=== PATIENT | male | born 1950 | race Hispanic/Latino ===

== ENCOUNTER 2018-12-04 08:33 | Inpatient (IN) | payer BC, MEDICARE ==
[~2018-12-04] VITALS: Ht 167.6 cm; Wt 81.2 kg
[2018-12-04 09:05] LABS: BASOPHILS % (AUTO) 0.1 % (0.0-5.0); EOSINOPHILS % (AUTO) 0.3 % (0.0-8.0); HEMATOCRIT 54.1 % (42-54); LYMPHOCYTES % (AUTO) 4.6 % (21.0-51.0); MEAN CORPUSCULAR HEMOGLOBIN 26.9 pg (27.0-33.0); MEAN CORPUSCULAR VOLUME 81.4 fL (79-99); MONOCYTES % (AUTO) 4.4 % (3.0-13.0); NEUTROPHILS % (AUTO) 90.6 % (40.0-77.0); PLATELET COUNT (AUTO) 172 K/uL (130-400); RED BLOOD CELL COUNT(AUTO) 6.64 MIL/uL (4.50-6.20); WHITE BLOOD COUNT (AUTO) 14.5 K/uL (4.8-10.8)
[2018-12-04 09:21] LABS: APPEARANCE,URINE Clear (CLEAR); BILIRUBIN,URINE Negative (NEGATIVE); COLOR,URINE Yellow (YELLOW); GLUCOSE, URINE (UA) Negative (NEGATIVE); KETONES,URINE Negative (NEGATIVE); LEUKOCYTE ESTERASE ,URINE Negative (NEGATIVE); NITRATE,URINE Negative (NEGATIVE); OCCULT BLOOD,URINE Negative (NEGATIVE); PROTEIN,URINE Trace mg/dL (NEGATIVE)
[2018-12-04 09:27] LABS: INR 0.99 (0.85-1.15); PARTIAL THROMBOPLASTIN TIME 25.2 SEC (26.3-35.5); PROTHROMBIN TIME 10.4 SEC (9.6-11.6)
[2018-12-04 09:32] LABS: CARBON DIOXIDE 26 mmol/L (21-32); CHLORIDE 103 mmol/L (101-111); CREATININE 1.1 mg/dL (0.5-1.5); GLOMERULAR FILTR. RATE CALC 71 mL/min (>60); GLUCOSE,RANDOM 217 mg/dL (70-105); POTASSIUM 4.1 mmol/L (3.5-5.1); SODIUM SERUM 142 mmol/L (136-145); UREA NITROGEN, BLOOD 25 mg/dL (7-18)
[2018-12-04 09:36] LABS: BACTERIA,URINE None Seen /HPF (None Seen); MUCUS,URINE Moderate LPF (None Seen); RBC,URINE 0-1 /HPF (0-1); SQUAMOUS EPITHELIAL CELL,UR 0-2 /HPF (0-2); WBC,URINE 0-1 /HPF (0-1)
[2018-12-04 09:43] LABS: ALANINE AMINOTRANSFERASE 36 U/L (12-78); ALBUMIN 4.2 g/dL (3.5-5.0); ASPARTATE AMINOTRANSFERASE 18 U/L (10-37); BILIRUBIN,TOTAL 0.6 mg/dL (0.2-1.0); CREATINE KINASE, TOTAL 135 U/L (21-232); MYOGLOBIN 50 ng/mL (10-92); TOTAL PROTEIN, SERUM 8.3 g/dL (6.0-8.3); TROPONIN I < 0.04 ng/mL (0.00-0.06)
[2018-12-04 09:57] LABS: BAND NEUTROPHILS % (MANUAL) 16 % (0-2); LYMPHOCYTES % (MANUAL) 3 % (22-44); MAN.DIFF COMMENT-IMPRESSION MANUAL DIFFERENTIAL; MONOCYTES % (MANUAL) 6 % (2-9); PLATELET MORPHOLOGY COMMENT ADEQUATE; SEGMENTED NEUTROPHILS % 75 % (40-70)
[2018-12-04] MEDS ORDERED: ONDANSETRON HCL 4 MG/2 ML VIAL ONE (10:03)
[2018-12-04] MEDS ORDERED: ZOSYN 3.375GM+NS 50ML 50 ML IV ONE (10:03)
[2018-12-04] MEDS ORDERED: SODIUM CHLORIDE 0.9% 1000ML 1,000 ML IV ONE ×3 (10:04→16:08)
[2018-12-04] MEDS ORDERED: ACETAMINOPHEN EXTRA STRENGTH 500 MG TABLET ONE (10:04)
[2018-12-04] MEDS ORDERED: HYDRALAZINE HCL 20 MG/ML VIAL IV PRN (15:45)
[2018-12-04] MEDS ORDERED: ACETAMINOPHEN 325 MG TAB PO PRN ×2 (15:45)
[2018-12-04] MEDS ORDERED: MORPHINE SULFATE 4 MG/1ML SYG IV PRN (15:45)
[2018-12-04] MEDS: SODIUM CHLORIDE 0.9% 1000ML 1,000 ML IV SCH (15:45)
[2018-12-04] MEDS ORDERED: ONDANSETRON HCL 4 MG/2 ML VIAL IV PRN (15:45)
[2018-12-04] MEDS ORDERED: MORPHINE SULFATE 2 MG/ML 1ML SYG IV PRN (15:45)
[2018-12-04] MEDS ORDERED: METOCLOPRAMIDE 10 MG/2 ML VIAL ONE (16:09)
[2018-12-04] MEDS ORDERED: ACETAMINOPHEN 325 MG TAB ONE (16:40)
[2018-12-04 16:47] LABS: MAGNESIUM 1.8 mg/dL (1.80-2.40); PHOSPHORUS 3.2 mg/dL (2.5-4.9)
[2018-12-04 16:49] LABS: HEMOGLOBIN A1C 7.4 % (4.0-6.0)
[2018-12-04] MEDS: METOCLOPRAMIDE 10 MG/2 ML VIAL IVP SCH (17:00)
--- NOTE | 2018-12-04 18:11 | NUR ---
REPORT RECEIVED FROM SILVIO WATERMAN (ED). PATIENT ADMITTED FOR SBO VS STOOL IMPACTION UNDER DR. SLAUGHTER SERVICES. DR. MOELLER CONSULTED AND IS AWARE OF THE CASE. PATIENT STATES HAS HAD SEVERAL BOWEL MOVEMENTS SINCE ARRIVAL TO ER AND FEELS BETTER. PATIENT STABLE AT THIS TIME.
[2018-12-04 18:20] VITALS: BP 131/70
[2018-12-04 19:40] VITALS: BP 125/66
[2018-12-04] MEDS ORDERED: ATOR10 PO (20:43)
[2018-12-04] MEDS: ZOSYN 3.375GM+NS 50ML 50 ML IV SCH (22:38)
[2018-12-04] MEDS: LORATADINE 10 MG TABLET PO SCH (22:39)
[2018-12-04] MEDS: FAMOTIDINE/PF 20 MG/2 ML VIAL IV SCH (22:39)
[2018-12-05] VITALS: BP 129/71
[2018-12-05] MEDS: SODIUM CHLORIDE 0.9% 1000ML 1,000 ML IV SCH ×3 (00:04→16:28)
[2018-12-05 04:00] VITALS: BP 140/80
[2018-12-05] MEDS: ZOSYN 3.375GM+NS 50ML 50 ML IV SCH ×3 (05:08→21:28)
[2018-12-05] MEDS: METOCLOPRAMIDE 10 MG/2 ML VIAL IVP SCH ×3 (06:52→16:54)
[2018-12-05 07:50] VITALS: BP 139/67
[2018-12-05] MEDS: FAMOTIDINE/PF 20 MG/2 ML VIAL IV SCH ×2 (09:30→21:28)
[2018-12-05] MEDS: LORATADINE 10 MG TABLET PO SCH (09:31)
[2018-12-05] MEDS: ENOXAPARIN SODIUM 30 MG/0.3 ML SQ SCH (09:32)
[2018-12-05 11:00] VITALS: BP 132/71
--- NOTE | 2018-12-05 11:00 | NUR ---
INITIAL MET W PATIENT ALONE, AAOXKathryn LIVES [facility] WHO WILL PROVIDE TRANSPORTT; PT STATES NURSING TRIED TO PLACE AN NGT X5 ATTEMPTS BUT WERE UNSUCCESSFUL. STATES HAS HAD TROUBLE W HIS STOMACH BEFORE BUT NEVER HAD TO BE HOSPITALIZED. PT IS AMB, INDP OF ADLS, NO CHENG/VALERIANO/LETICIA. DCP IS HOME Addendum: 12/05/18 at 1535 by LISA DE LOS SANTOS RN CM Amended: Links added.
[2018-12-05 15:48] VITALS: BP 146/80
[2018-12-05 20:10] VITALS: BP 134/74
[2018-12-05] MEDS ORDERED: ESOM40CA54 PO (22:38)
[2018-12-05] MEDS ORDERED: LORA10TA7 PO (22:38)
[2018-12-06 00:10] VITALS: BP 139/74
[2018-12-06] MEDS: SODIUM CHLORIDE 0.9% 1000ML 1,000 ML IV SCH ×2 (02:20→08:58)
[2018-12-06 04:00] VITALS: BP 130/71
[2018-12-06 04:58] LABS: HEMATOCRIT 39.5 % (42-54); MEAN CORPUSCULAR HEMOGLOBIN 26.6 pg (27.0-33.0); MEAN CORPUSCULAR VOLUME 80.5 fL (79-99); NUCLEATED RED BLOOD CELLS 0.1 % (0.0-0.19); PLATELET COUNT (AUTO) 138 K/uL (130-400); WHITE BLOOD COUNT (AUTO) 5.9 K/uL (4.8-10.8)
[2018-12-06] MEDS: ZOSYN 3.375GM+NS 50ML 50 ML IV SCH (05:13)
[2018-12-06 05:17] LABS: CREATININE 0.8 mg/dL (0.5-1.5); MAGNESIUM 1.8 mg/dL (1.80-2.40); PHOSPHORUS 2.6 mg/dL (2.5-4.9); POTASSIUM 3.5 mmol/L (3.5-5.1)
--- NOTE | 2018-12-06 05:29 | NUR ---
PATIENT UPDATE Clear liquid diet well tolerated, to be advanced to full liquid diet today. Continues with the NS at 125 cc/hr. Ambulating freely around the room, at the bedside.
[2018-12-06 07:56] VITALS: BP 148/83
[2018-12-06] MEDS: METOCLOPRAMIDE 10 MG/2 ML VIAL IVP SCH (08:58)
[2018-12-06] MEDS: FAMOTIDINE/PF 20 MG/2 ML VIAL IV SCH (08:58)
[2018-12-06] MEDS: LORATADINE 10 MG TABLET PO SCH (08:59)
[2018-12-06] MEDS ORDERED: BISACODYL 5 MG TABLET.DR PO SCH (09:00)
[2018-12-06] MEDS ORDERED: DOCUSATE SODIUM 100 MG CAP PO SCH (09:00)
[2018-12-06] MEDS: ENOXAPARIN SODIUM 30 MG/0.3 ML SQ SCH (09:01)
[2018-12-06 11:54] VITALS: BP 148/83
[2018-12-06] MEDS ORDERED: METR500T PO (11:59)
[2018-12-06] MEDS ORDERED: LEVO500T2 PO (11:59)
[2018-12-06] MEDS ORDERED: POTASSIUM CHLORIDE 20 MEQ ERTAB PO SCH (14:15)
[2018-12-06] MEDS ORDERED: MAGNESIUM 2GM PREMIX 50ML 50 ML IV PRN (14:15)
--- NOTE | 2018-12-06 14:40 | NUR ---
Follow up with dietitian regarding consult and she said she already talked to pt and gave her the diet recommendations to pt for diverticulitis
--- NOTE | 2018-12-06 15:05 | NUR ---
RD NOTIFICATION Dx: SBO vs. Stool Impaction. Hx: GERD, Hyperlipidemia, Constipation. Diet: Regular. PO intake 100% and has improved appetite as per pt. LBM: 12/04. Pt tolerating diet well. No complaints of nausea, vomiting or diarrhea at this time. Suspected Diverticulitis vs. SBO as per MD note. Pt stated he has felt bloated and constipated in the past triggered by certain foods. Pt admits to eating late at night right before bed. RD provided Low fiber and High fiber diet and nutrition education. RD encouraged pt to consume small, more frequent meals throughout the day vs. having a large meal before bedtime. RD emphasized drinking plenty fluids throughout the day and increasing physical activity after mealtimes. Depending on pt symptoms modify diet to low fiber and slowly increase to high fiber as tolerated. Pt stated he feels bloated with certain foods. RD encouraged pt to keep a food diary log and note foods that trigger adverse symptoms- and avoid these foods. Education materials provided. RD recommends GI SOFT/BLAND diet. d/c Regular diet. RD provided Low Fiber and High Fiber diet and nutrition education depending on symptoms. RD will follow up as needed. Ruby Temple MS, LIZZIE Addendum: 12/06/18 at [address] RD Amended: Links added.
--- NOTE | 2018-12-06 15:07 | NUR ---
DIET EDUCATION Pt stated he has felt bloated and constipated in the past triggered by certain foods. Pt admits to eating late at night right before bed. RD provided Low fiber and High fiber diet and nutrition education. RD encouraged pt to consume small, more frequent meals throughout the day vs. having a large meal before bedtime. RD emphasized drinking plenty fluids throughout the day and increasing physical activity after mealtimes. Depending on pt symptoms modify diet to low fiber and slowly increase to high fiber as tolerated. Pt stated he feels bloated with certain foods. RD encouraged pt to keep a food diary log and note foods that trigger adverse symptoms- and avoid these foods. Education materials provided. Addendum: 12/06/18 at [address] RD Amended: Links added.
[2018-12-06 16:00] VITALS: BP 159/72
== END 2018-12-06 16:45 | disposition home or self-care (01) | DRG 872 ==
LOC: EDH 08:33 → EDHIP 15:45 → 3AH 18:16
PROVIDERS: ADMIT Internal Medicine; ATTEND Internal Medicine
DX: A41.9 Sepsis, unspecified organism (principal); K57.92 Diverticulitis of intestine, part unspecified, without perforation or abscess without bleeding; K56.600 Partial intestinal obstruction, unspecified as to cause; K21.9 Gastro-esophageal reflux disease without esophagitis; E78.5 Hyperlipidemia, unspecified; Z87.891 Personal history of nicotine dependence; Z90.49 Acquired absence of other specified parts of digestive tract
CPT/HCPCS: 36415; 71045; 74018; 74176; 80048; 80053; 81001; 82150; 82550; 83036; 83605; 83690; 83735; 83874; 84100; 84145; 84484; 85025; 85027; 85610; 85730; 87040; 87088; 93005; G0378; J1650; J2405; J2543; J2765; J3475; J3490; J7030

== ENCOUNTER 2020-03-28 06:12 | Emergency (ER) | payer BC, MEDICARE, OTHER ==
[~2020-03-28 06:12] MED LIST: ATOR10 PO; ESOM40CA54 PO; LEVO500T2 PO; LORA10TA7 PO; METR500T PO
[2020-03-28 06:57] LABS: BASOPHILS % (AUTO) 0.3 % (0.0-5.0); HEMATOCRIT 46.8 % (42-54); LYMPHOCYTES % (AUTO) 35.9 % (21.0-51.0); MEAN CORPUSCULAR HEMOGLOBIN 25.6 pg (27.0-33.0); MEAN CORPUSCULAR HGB CONC 31.4 g/dL (32.0-36.0); MEAN CORPUSCULAR VOLUME 81.5 fL (79-99); MONOCYTES % (AUTO) 8.4 % (3.0-13.0); NEUTROPHILS % (AUTO) 54.1 % (40.0-77.0); PLATELET COUNT (AUTO) 179 K/uL (130-400); RED BLOOD CELL COUNT(AUTO) 5.74 MIL/uL (4.50-6.20); RED CELL DISTRIBUTION WIDTH 13.7 % (11.0-15.5)
[2020-03-28 06:58] LABS: ALBUMIN 3.9 g/dL (3.5-5.0); BILIRUBIN,TOTAL 0.7 mg/dL (0.2-1.0); CREATININE 0.8 mg/dL (0.5-1.5); TOTAL PROTEIN, SERUM 8.2 g/dL (6.0-8.3)
[2020-03-28] MEDS ORDERED: ONDANSETRON HCL 4 MG/2 ML VIAL ONE (07:19)
[2020-03-28] MEDS ORDERED: PANTOPRAZOLE 40 MG/VIAL ONE (07:19)
[2020-03-28] MEDS ORDERED: FAMOTIDINE/PF 20 MG/2 ML VIAL IV ONE (07:20)
[2020-03-28] MEDS ORDERED: SODIUM CHLORIDE 0.9% 500ML 500 ML IV ONE (07:20)
[2020-03-28 07:41] LABS: POTASSIUM 4.2 mmol/L (3.5-5.1)
[2020-03-28 08:52] LABS: APPEARANCE,URINE Clear (CLEAR); BILIRUBIN,URINE Negative (NEGATIVE); COLOR,URINE Yellow (YELLOW); GLUCOSE, URINE (UA) Negative (NEGATIVE); KETONES,URINE Trace mg/dL (NEGATIVE); LEUKOCYTE ESTERASE ,URINE Negative (NEGATIVE); NITRATE,URINE Negative (NEGATIVE); OCCULT BLOOD,URINE Negative (NEGATIVE); PROTEIN,URINE Negative (NEGATIVE)
[2020-03-28] MEDS ORDERED: MAGNESIUM CITRATE 296 ML SOLUTION ONE (10:43)
== END 2020-03-28 12:05 | disposition home or self-care (01) ==
LOC: EDH 06:12
DX: K59.00 Constipation, unspecified (principal); E78.00 Pure hypercholesterolemia, unspecified; Z90.49 Acquired absence of other specified parts of digestive tract
CPT/HCPCS: 36415; 71045; 74176; 80053; 81003; 83605; 83690; 84484; 85025; 93005; 96374; 96375; 99285; C9113; J2405; J3490; J7040

== ENCOUNTER → 2020-09-29 | Outpatient (CLI) | payer BC, OTHER ==
[~2020-09-29] MED LIST changes: +IOHEXOL-350 50ML VIAL IV ONE
== END | disposition home or self-care (01) ==
LOC: RAH 11:06
PROVIDERS: ATTEND Internal Medicine Cardiovascular Disease
DX: I67.2 Cerebral atherosclerosis (principal)
CPT/HCPCS: 70470; Q9967

== ENCOUNTER → 2022-12-08 | Outpatient (CLI) | payer OTHER ==
[~2022-12-08] MED LIST changes: -IOHEXOL-350 50ML VIAL IV ONE
[2022-12-08 10:51] LABS: ALBUMIN 4.1 g/dL (3.5-5.0); BILIRUBIN,TOTAL 0.5 mg/dL (0.2-1.0); CREATININE 0.9 mg/dL (0.5-1.5); POTASSIUM 4.7 mmol/L (3.5-5.1)
== END | disposition home or self-care (01) ==
LOC: LAB 09:30
PROVIDERS: ATTEND Internal Medicine
DX: E11.628 Type 2 diabetes mellitus with other skin complications (principal)
CPT/HCPCS: 36415; 80053

== ENCOUNTER → 2022-12-19 | Outpatient (CLI) | payer OTHER ==
[~2022-12-19] MED LIST changes: +GADOTERATE MEGLUMINE 10 MMOL/20 ML VIAL IV ONE
== END | disposition home or self-care (01) ==
LOC: RAH 13:40
PROVIDERS: ATTEND Internal Medicine
DX: M47.26 Other spondylosis with radiculopathy, lumbar region (principal); M48.061 Spinal stenosis, lumbar region without neurogenic claudication; M51.16 Intervertebral disc disorders with radiculopathy, lumbar region
CPT/HCPCS: 72158; A9575